=== PATIENT | female | born 1990 | race Caucasian/White ===

== ENCOUNTER 2018-05-02 18:19 | Emergency (ER) | payer OTHER ==
[~2018-05-02] VITALS: Ht 157.5 cm; Wt 99.8 kg
[2018-05-02] MEDS ORDERED: CYMBALTA60 MG PO (18:48)
[2018-05-02] MEDS ORDERED: VISTARIL 25 MG25 M1 PO (18:49)
[2018-05-02] MEDS ORDERED: TRAZODONE HCL100 MG PO (18:49)
[2018-05-02] MEDS ORDERED: CLONAZEPAM 1 MG1 M1 PO (18:49)
[2018-05-02] MEDS ORDERED: FOLGARD TABLET1 EAC1 PO (18:50)
[2018-05-02 19:54] LABS: ABSOLUTE EOSINOPHILS 0.2 thou/uL (0.0-0.7); ABSOLUTE LYMPHOCYTES 2.7 thou/uL (0.8-5.3); ABSOLUTE MONOCYTES 0.4 thou/uL (0.0-1.2); ABSOLUTE NEUTROPHILS 4.3 thou/uL (1.6-8.1); BASOPHILS 0.6 %; EOSINOPHILS 2.6 %; HEMATOCRIT 43.7 % (37.0-47.0); HEMOGLOBIN 14.9 gm/dL (12.0-15.0); LYMPHOCYTES 35.6 %; MCH 31.3 pg (26.0-34.0); MCHC 34.2 g/dL (28.0-37.0); MCV 91.6 fL (80.0-100.0); MONOCYTES 5.6 %; MPV 8.1 fl. (7.2-11.1); NUCLEATED RBCS 0 /100WBC; PLATELET COUNT* 268 thou/uL (150-400); POLYS 55.6 %; RBC 4.77 mil/uL (4.20-5.00); RDW-CV 12.9 % (10.5-14.5); WBC 7.7 thou/uL (4.0-11.0)
[2018-05-02 20:01] LABS: ANION GAP 6 mmol/L (7-16); BUN 8 mg/dL (7-18); CALCIUM 8.9 mg/dL (8.5-10.1); CHLORIDE 103 mmol/L (98-107); CO2 31 mmol/L (21-32); CREATININE 0.9 mg/dL (0.6-1.3); GLUCOSE 76 mg/dL (70-99); POTASSIUM 3.7 mmol/L (3.5-5.1); SODIUM 140 mmol/L (136-145)
[2018-05-02 20:12] LABS: ALBUMIN 3.5 g/dL (3.4-5.0); ALKALINE PHOSPHATASE 72 U/L (46-116); LIPASE 186 U/L (73-393); NT-PRO BRAIN NAT PEPTIDE 10 pg/mL (<300); SGOT 20 U/L (15-37); SGPT 27 U/L (30-65); TOTAL BILIRUBIN 0.2 mg/dL (<0.1-1.0); TOTAL PROTEIN 7.9 g/dL (6.4-8.2); TROPONIN-I LEVEL <0.06 ng/mL (<0.06)
[2018-05-02 21:02] LABS: URINE BILIRUBIN NEGATIVE (Negative); URINE BLOOD TRACE (Negative); URINE CLARITY CLEAR; URINE COLOR YELLOW; URINE GLUCOSE-RANDOM NEGATIVE (Negative); URINE KETONES NEGATIVE (Negative); URINE LEUKOCYTES-REFLEX NEGATIVE (Negative); URINE NITRITE-REFLEX NEGATIVE (Negative); URINE PROTEIN NEGATIVE (Negative); URINE UROBILINOGEN 0.2 E.U./dl (0.2-1.0)
[2018-05-02] MEDS ORDERED: BENTYL 20 MG TA20 M1 PO (22:55)
[2018-05-02 23:07] VITALS: BP 117/78
--- NOTE | 2018-05-03 16:23 | EKG ---
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
== END 2018-05-02 23:07 | disposition home or self-care (01) ==
LOC: M.ERS 18:19
PROVIDERS: Nurse Practitioner Family
DX: R10.11 Right upper quadrant pain (principal); R07.89 Other chest pain; R19.7 Diarrhea, unspecified; Z87.442 Personal history of urinary calculi; Z98.890 Other specified postprocedural states; Z88.8 Allergy status to other drugs, medicaments and biological substances

== ENCOUNTER 2020-10-14 13:08 | Emergency (ER) | payer OTHER ==
[~2020-10-14] VITALS: Ht 154.9 cm; Wt 86.2 kg
[~2020-10-14 13:08] MED LIST: BENTYL 20 MG TA20 M1 PO; CLONAZEPAM 1 MG1 M1 PO; CYMBALTA60 MG PO; FOLGARD TABLET1 EAC1 PO; TRAZODONE HCL100 MG PO; VISTARIL 25 MG25 M1 PO
[2020-10-14 13:45] LABS: URINE BILIRUBIN NEGATIVE (Negative); URINE BLOOD 1+ (Negative); URINE CLARITY CLEAR; URINE COLOR YELLOW; URINE GLUCOSE-RANDOM NEGATIVE (Negative); URINE KETONES NEGATIVE (Negative); URINE LEUKOCYTES-REFLEX NEGATIVE (Negative); URINE NITRITE-REFLEX NEGATIVE (Negative); URINE PROTEIN NEGATIVE (Negative); URINE SPECIFIC GRAVITY <= 1.005 (1.005-1.030); URINE UROBILINOGEN 0.2 E.U./dl (0.2-1.0)
[2020-10-14] MEDS ORDERED: METFORMIN HCL500 MG PO (13:49)
[2020-10-14] MEDS ORDERED: VIBRID (13:49)
[2020-10-14] MEDS ORDERED: XANAX 0.5 MG0.5 M1 (13:49)
[2020-10-14] MEDS ORDERED: OZEMPIC1 MG/0.71 (13:49)
[2020-10-14 13:53] LABS: BACTERIA-REFLEX 1-9 Few /HPF (None Seen); CASTS None Seen /LPF (None Seen); CRYSTALS None Seen /LPF (None Seen); MUCUS None Seen strn/LPF (None Seen); SQUAMOUS 4-10 Moderate /LPF (0-3); URINE RBC 3-10 Few /HPF (0-2); URINE WBC-REFLEX 0-5 Rare /HPF (0-5)
[2020-10-14 14:12] LABS: ABSOLUTE BASOPHILS 0.1 thou/uL (0.0-0.2); ABSOLUTE EOSINOPHILS 0.1 thou/uL (0.0-0.7); ABSOLUTE LYMPHOCYTES 2.2 thou/uL (0.8-5.3); ABSOLUTE MONOCYTES 0.4 thou/uL (0.0-1.2); ABSOLUTE NEUTROPHILS 4.7 thou/uL (1.6-8.1); BASOPHILS 0.7 %; EOSINOPHILS 1.6 %; HEMATOCRIT 41.8 % (37.0-47.0); HEMOGLOBIN 14.5 gm/dL (12.0-15.0); LYMPHOCYTES 29.2 %; MCHC 34.6 g/dL (28.0-37.0); MCV 89.6 fL (80.0-100.0); MONOCYTES 5.4 %; MPV 8.7 fl. (7.2-11.1); NUCLEATED RBCS 0 /100WBC; PLATELET COUNT* 294 thou/uL (150-400); POLYS 63.1 %; RBC 4.67 mil/uL (4.20-5.00); RDW-CV 13.8 % (10.5-14.5); WBC 7.5 thou/uL (4.0-11.0)
[2020-10-14 14:17] LABS: CALCIUM 8.6 mg/dL (8.5-10.1); CREATININE 0.9 mg/dL (0.6-1.3); POTASSIUM 3.6 mmol/L (3.5-5.1)
[2020-10-14 14:21] LABS: ALBUMIN 3.6 g/dL (3.4-5.0); TOTAL BILIRUBIN 0.4 mg/dL (<0.1-1.0); TOTAL PROTEIN 7.8 g/dL (6.4-8.2)
[2020-10-14] MEDS ORDERED: BENTYL 10 MG CA10 M1 PO (17:54)
[2020-10-14] MEDS ORDERED: ZOFRAN ODT4 MG PO (17:54)
[2020-10-14] MEDS ORDERED: ROXICODONE5 MG PO ×2 (18:08→18:18)
[2020-10-14 18:32] VITALS: BP 104/66
--- NOTE | 2020-10-15 09:35 | EKG ---
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1990 Requested By: Kati Koehler Order Number: [id number] MD: Nathanael Rosa Measurements Intervals [place] Rate: 58 P: 27 VA: 129 QRS: 26 QRSD: 98 T: -2 QT: 417 QTc: 410 Interpretive Statements Sinus rhythm Borderline T abnormalities, anterior leads Compared to ECG 05/02/2018 18:49:43 No significant changes Electronically Signed On 10-15-2020 9:35:51 CDT by Nathanael Rosa [email or web address] <ELECTRONICALLY SIGNED> By: Nathanael Rosa MD, [facility] 10/15/20 0935 1416 1416 Nathanael Rosa MD, [facility] /EPI
== END 2020-10-14 18:34 | disposition home or self-care (01) ==
LOC: M.ERS 13:08
PROVIDERS: Nurse Practitioner Family
DX: R10.31 Right lower quadrant pain (principal); Z20.822 Contact with and (suspected) exposure to COVID-19; Z87.442 Personal history of urinary calculi; Z90.49 Acquired absence of other specified parts of digestive tract; Z98.51 Tubal ligation status; Z98.890 Other specified postprocedural states; Z87.01 Personal history of pneumonia (recurrent)

== ENCOUNTER 2020-12-25 07:12 | Inpatient (IN) | payer OTHER ==
[~2020-12-25] VITALS: Ht 157.5 cm; Wt 81.2 kg
[~2020-12-25 07:12] MED LIST changes: +BENTYL 10 MG CA10 M1 PO; +METFORMIN HCL500 MG PO; +OZEMPIC1 MG/0.71; +ROXICODONE5 MG PO; +VIBRID; +XANAX 0.5 MG0.5 M1; +ZOFRAN ODT4 MG PO
[2020-12-25 07:47] VITALS: BP 120/86
[2020-12-25] MEDS ORDERED: OZEMPIC0.25 MG/0. SUBQ (07:52)
[2020-12-25 08:31] LABS: URINE BLOOD TRACE (Negative); URINE CLARITY CLEAR; URINE COLOR YELLOW; URINE GLUCOSE-RANDOM NEGATIVE (Negative); URINE KETONES 1+ (Negative); URINE LEUKOCYTES-REFLEX NEGATIVE (Negative); URINE NITRITE-REFLEX NEGATIVE (Negative); URINE PROTEIN 1+ (Negative); URINE SPECIFIC GRAVITY >= 1.030 (1.005-1.030); URINE UROBILINOGEN 0.2 E.U./dl (0.2-1.0)
[2020-12-25 08:33] LABS: ICTOTEST (BILI CONFIRMATORY) Negative (Negative); URINE BILIRUBIN 2+ (Negative)
[2020-12-25 09:17] LABS: ABSOLUTE EOSINOPHILS 0.3 thou/uL (0.0-0.7); ABSOLUTE LYMPHOCYTES 2.2 thou/uL (0.8-5.3); ABSOLUTE MONOCYTES 0.5 thou/uL (0.0-1.2); ABSOLUTE NEUTROPHILS 5.3 thou/uL (1.6-8.1); BASOPHILS 0.2 %; EOSINOPHILS 3.6 %; HEMATOCRIT 50.2 % (37.0-47.0); HEMOGLOBIN 17.6 gm/dL (12.0-15.0); LYMPHOCYTES 26.6 %; MCH 31.3 pg (26.0-34.0); MCHC 34.9 g/dL (28.0-37.0); MCV 89.6 fL (80.0-100.0); MONOCYTES 6.1 %; NUCLEATED RBCS 0 /100WBC; PLATELET COUNT* 306 thou/uL (150-400); POLYS 63.5 %; RBC 5.61 mil/uL (4.20-5.00); RDW-CV 13.4 % (10.5-14.5); WBC 8.3 thou/uL (4.0-11.0)
[2020-12-25 09:39] LABS: ALBUMIN 4.5 g/dL (3.4-5.0); CALCIUM 9.1 mg/dL (8.5-10.1); CREATININE 0.9 mg/dL (0.6-1.3); POTASSIUM 3.9 mmol/L (3.5-5.1); TOTAL BILIRUBIN 0.9 mg/dL (<0.1-1.0); TOTAL PROTEIN 9.3 g/dL (6.4-8.2)
[2020-12-25 12:32] VITALS: BP 113/70
[2020-12-25 21:00] VITALS: BP 123/81
[2020-12-26 04:13] LABS: ABSOLUTE EOSINOPHILS 0.4 thou/uL (0.0-0.7); ABSOLUTE LYMPHOCYTES 2.5 thou/uL (0.8-5.3); ABSOLUTE MONOCYTES 0.4 thou/uL (0.0-1.2); ABSOLUTE NEUTROPHILS 2.3 thou/uL (1.6-8.1); BASOPHILS 0.3 %; EOSINOPHILS 6.8 %; HEMATOCRIT 37.8 % (37.0-47.0); LYMPHOCYTES 44.5 %; MCH 31.5 pg (26.0-34.0); MCHC 35.1 g/dL (28.0-37.0); MCV 89.8 fL (80.0-100.0); MONOCYTES 6.9 %; MPV 8.5 fl. (7.2-11.1); NUCLEATED RBCS 0 /100WBC; POLYS 41.5 %; RDW-CV 13.2 % (10.5-14.5); WBC 5.6 thou/uL (4.0-11.0)
[2020-12-26 04:35] LABS: CALCIUM 7.7 mg/dL (8.5-10.1); CREATININE 0.7 mg/dL (0.6-1.3); POTASSIUM 3.7 mmol/L (3.5-5.1)
[2020-12-26 05:13] LABS: HEMOGLOBIN 13.2 gm/dL (12.0-15.0); PLATELET COUNT* 207 thou/uL (150-400)
[2020-12-26 08:05] VITALS: BP 112/69
[2020-12-26 16:42] VITALS: BP 104/73
[2020-12-26] MEDS ORDERED: CHOLESTYRAMINE P4 GM PO (16:43)
[2020-12-26] MEDS ORDERED: ONDANSETRON HCL4 M2 PO (16:43)
[2020-12-26] MEDS ORDERED: NORCO5 PO (16:43)
[2020-12-26 17:05] VITALS: BP 104/73
[2020-12-26 18:08] VITALS: BP 104/73
== END 2020-12-26 18:05 | disposition home or self-care (01) | DRG 390 ==
LOC: M.ERS 07:12 → M.TBA-ER 10:49 → M.3W 16:38
PROVIDERS: Emergency Medicine Emergency Medical Services; ADMIT Internal Medicine; ATTEND Internal Medicine
PROC: 0D9670Z Drainage of Stomach with Drainage Device, Via Natural or Artificial Opening (ICD-10-PCS; principal; 2020-12-25)
DX: K56.699 Other intestinal obstruction unspecified as to partial versus complete obstruction (principal); E28.2 Polycystic ovarian syndrome; E86.0 Dehydration; E66.9 Obesity, unspecified; N80.9 Endometriosis, unspecified; Z20.822 Contact with and (suspected) exposure to COVID-19; Z87.442 Personal history of urinary calculi; Z91.048 Other nonmedicinal substance allergy status; Z68.32 Body mass index [BMI] 32.0-32.9, adult

== ENCOUNTER 2021-01-20 19:44 | Emergency (ER) | payer OTHER ==
[~2021-01-20] VITALS: Ht 157.5 cm; Wt 81.2 kg
[~2021-01-20 19:44] MED LIST changes: +CHOLESTYRAMINE P4 GM PO; +NORCO5 PO; +ONDANSETRON HCL4 M2 PO; +OZEMPIC0.25 MG/0. SUBQ
[2021-01-20 20:41] LABS: URINE BILIRUBIN NEGATIVE (Negative); URINE BLOOD TRACE (Negative); URINE CLARITY CLEAR; URINE COLOR YELLOW; URINE GLUCOSE-RANDOM NEGATIVE (Negative); URINE KETONES NEGATIVE (Negative); URINE LEUKOCYTES-REFLEX 1+ (Negative); URINE NITRITE-REFLEX NEGATIVE (Negative); URINE PROTEIN NEGATIVE (Negative); URINE SPECIFIC GRAVITY 1.025 (1.005-1.030); URINE UROBILINOGEN 0.2 E.U./dl (0.2-1.0)
[2021-01-20 21:00] LABS: MUCUS 0-3 Light strn/LPF (None Seen); SQUAMOUS >10 Many /LPF (0-3)
[2021-01-20 21:01] LABS: CASTS None Seen /LPF (None Seen); CRYSTALS None Seen /LPF (None Seen); URINE RBC 0-2 Rare /HPF (0-2); URINE WBC-REFLEX 0-5 Rare /HPF (0-5)
[2021-01-20 23:03] VITALS: BP 116/80
== END 2021-01-20 23:03 | disposition left against medical advice (07) ==
LOC: M.ERS 19:44
PROVIDERS: Nurse Practitioner Family
DX: R10.9 Unspecified abdominal pain (principal); N20.0 Calculus of kidney; Z53.21 Procedure and treatment not carried out due to patient leaving prior to being seen by health care provider; Z79.899 Other long term (current) drug therapy